=== PATIENT | female | born 1960 | race Caucasian/White ===

== ENCOUNTER 2017-02-03 10:09 | Inpatient (IN) | payer MEDICARE, MEDICAID ==
[~2017-02-03] VITALS: Ht 139.7 cm; Wt 80.0 kg
[2017-02-03 00:22] VITALS: BP 113/71
[~2017-02-03 10:09] MED LIST: AMBIEN10 MG PO; ASPIRIN CHEWABL81 MG PO; ASPIRIN EC81 MG PO; ATORVASTATIN CA40 MG PO; BACTRIM DS1 TAB PO; BENADRYL 50MG C50 MG OR; CITALOPRAM40 MG OR; DOLACET1 CAP PO; DOXYCYCL HYC100 MG PO; FLEXERIL5 MG OR; FLUARIX QUADRIV1 IN1 IM; HUMALOG100 MG/ML SC; HYDROCHLORO25 MG/TAB PO; KEFLEX500 M1 PO; LEVEMIR SC; LEVEMIR1000 UNITS SC; LISINOPRIL20 M1 PO; LOPRESSOR25 MG PO; LORTAB 10-325 M1 TAB PO; LORTAB 5 OR; LOTREL 5/101 CAP OR; LOVASTATIN20 M1 PO; LYRICA200 MG OR; LYRICA200 MG PO; NOVOLO1 SC; OMEPRAZOLE20 MG PO; PERCOCET 5/325M1 TAB PO; PHENAZOPYRID100 MG OR; PHENERGAN25 MG/TAB PO; PLAVIX75 MG OR; PLAVIX75 MG PO; PREDNISONE10 MG PO; PREDNISONE20 MG PO; RANITIDINE150 M1 OR; SANTYL250 MG/GM; SILVADENE1 % EX; TESSALON PER100 MG PO; TRAMADOL HCL50 MG PO; TRAZODONE150 MG OR; ULTRAM50 MG OR; XANAX0.25 MG PO; ZITHROMAX250 MG PO; ZOFRAN ODT4 MG PO; ZOFRAN ODT8 MG OR; [UNRECOGNIZED DRUG - OTHER]; [UNRECOGNIZED DRUG - REMARK]
--- NOTE | 2017-02-03 10:18 | NUR ---
PT TO ROOM FOR TREATMENT IN STABLE CONDITION
[2017-02-03 11:14] LABS: HEMATOCRIT 34.9 % (37.0-47.0); HEMOGLOBIN 11.2 g/dl (12.0-16.0); IMMATURE GRANULOCYTES 1.1 % (0.0-1.0); MEAN CORPUSCULAR HGB CONC 32.1 g/L CALC (32.0-36.0); NEUT# 5.68 thou/uL (2.00-7.15); RED BLOOD COUNT 4.31 mill/uL (4.20-5.60)
--- NOTE | 2017-02-03 11:24 | NUR ---
LAB AT BEDSIDE FOR SECOND BC DRAW.
--- NOTE | 2017-02-03 12:27 | NUR ---
UA OBTAINED VIA STRAIGHT CATH. CLOUDY YELLOW URINE. PT TOELRATED WELL. INFORMED OF DISCOMFORT TO SORES ON BUTTOCKS
[2017-02-03 12:40] LABS: ALBUMIN 3.4 g/dL (3.2-5.0); ALKALINE PHOSPHATASE 244 u/l (38-126); ANION GAP 15 (6-22 (CALC)); BILIRUBIN, TOTAL 0.4 mg/dL (0.0-1.4); BUN 28 mg/dL (7-17); BUN/CREATININE RATIO 30 (12-20 (CALC)); CALCIUM 9.4 mg/dL (8.4-10.2); CARBON DIOXIDE 28 mmol/l (22-30); CHLORIDE 96 mmol/l (95-108); GFR 57 ML/MIN (>=60 (CALC)); GFR FOR AFR.AMER. > 60 ML/MIN (>=60 (CALC)); POTASSIUM 4.9 mmol/l (3.5-5.1); SGOT/AST 15 u/l (14-36); SGPT/ALT 17 u/l (9-52); SODIUM 134 mmol/l (137-146); TOTAL PROTEIN 8.2 g/dL (6.3-8.2)
[2017-02-03 12:43] LABS: GLUCOSE 469 mg/dL (65-105)
[2017-02-03 12:52] LABS: URINE BILIRUBIN - DIPSTICK NEGATIVE (NEGATIVE); URINE BLOOD DIPSTICK SMALL (NEGATIVE); URINE COLOR YELLOW; URINE GLUCOSE - DIPSTICK >=1000 mg/dL (NEGATIVE); URINE KETONE NEGATIVE (NEGATIVE); URINE LEUK ESTERASE NEGATIVE (NEGATIVE); URINE PH 5.5 (4.5-8.0); URINE PROTEIN - DIPSTICK 100 mg/dL (NEG-TRACE); URINE SPECIFIC GRAVITY 1.015; URINE UROBILINOGEN - DIPSTICK 0.2 E.U./dL (0.2)
--- NOTE | 2017-02-03 12:53 | NUR ---
PT STATES SHE DOESNT TAKE ANY MEDS FOR JESSICA , PT STATES "I TAKE MY INSULIN WHEN I THINK I NEED IT ABOUT EVERY THREE TWO DAYS".
[2017-02-03 12:55] LABS: URINE BACTERIA MANY hpf; URINE CLARITY HAZY; URINE EPITHELIAL CELLS MODERATE EPI/hpf (0-FEW); URINE NITRITE - DIPSTICK POSITIVE (Negative)
--- NOTE | 2017-02-03 13:00 | NUR ---
PT CONSUMED 50% OF NOON MEAL. PT DOZING OFF AND ON. ROUSES EASILY. MD NOTIFIED OF BP
--- NOTE | 2017-02-03 14:00 | NUR ---
IV INFUSING ORDERED, TOLERATING WELL. MEDICATED FOR PAIN. MOVES SELF IN BED, OFFLOADING PRESSURE TO BUTTOCKS AT THIS TI,E
--- NOTE | 2017-02-03 15:07 | NUR ---
Vancomycin dose Age: 56 years Weight: 88 kg Height: 139.7 cm Gender: Female SCR: 1 mg/dl Dosing weight: 62.5 kg IBW: 45.5 kg CRCL (ml/min): 45.1 Haris (hr-1): 0.042 Half-life (hrs): 16.50 Vd (liters): 61.60 (factor: 0.7 L/kg) Vancomycin 1500 mg q24 hrs to produce a predicted peak of 36.8 mcg/ml and a predicted trough of 14.61 mcg/ml based on (Population-based pharmacokinetic analysis) Vancomycin trough on 02/07/18 at 0830, 30 minutes prior to dose.
--- NOTE | 2017-02-03 15:30 | NUR ---
[place] [facility] [place]
--- NOTE | 2017-02-03 15:37 | NUR ---
REPORT TO TIARA SUERO
--- NOTE | 2017-02-03 16:00 | NUR ---
TRANSPORTED TO [facility] – [place]IA STRETCHER
--- NOTE | 2017-02-03 16:02 | NUR ---
PT ARRIVED TO FLOOR VIA STRETCHER ACCOMPANIED BY PIO GONZALEZ. PT ORIENTED TO ROOM ADN EQUIPMENT. PLAN OF CARE DISCUSSED. PT TRANSFERED SELF TO BED, BILATERAL AKA. FALL PRECAUTIONS REINFORCED. CALL LIGHT REVIEWED AND IN REACH. PT STATES UNDERSTANDING OF INFORMATION. PT DENIES PAIN AT THIS TIME. ISOLATION PRECAUTIONS IN PLACE R/T HX MRSA.
[2017-02-03 16:09] VITALS: BP 126/70
--- NOTE | 2017-02-03 19:22 | NUR ---
pt awake in bed; offers no complaints at this time; assessment completed at this time; pt alert; denies pain; resp even and unlabored; lungs clear; ra; hr reg; weak radial pulses; tele [id number] intact; abd soft with bs present; no bm noted per inspector automatic typewriter; pt admits to voiding without complication; no urine to inspect at this time; #20 in lac with ivf infusing at 150cc/hr; no redness or edema noted at site; duoderms intact to bilat buttocks; pt admits to being able to reposition self; repositioning strongly encouraged; right bka/ left aka; left stump noted with dressing cdi; no drainage noted at this time; plan of care/ meds explained; call light within reach; contact prec; will continue to monitor
[2017-02-03 19:57] VITALS: BP 95/68
--- NOTE | 2017-02-03 21:25 | NUR ---
pm meds explained and administered; accucheck 241; hs snack provided; medicated for pain; will continue to monitor
--- NOTE | 2017-02-03 21:30 | NUR ---
pt requesting sleeping pill; Dr Duron notified
--- NOTE | 2017-02-03 22:01 | NUR ---
dressing to left stump reinforced; pt denies needs at this time; iv patent; anthony light within reach; will continue to monitor
--- NOTE | 2017-02-04 00:09 | NUR ---
resting with eyes closed; resp even and unlabored; iv intact; call light within reach; will continue to monitor
--- NOTE | 2017-02-04 02:15 | NUR ---
asleep; easily aroused; no distress noted; call light within reach; will continue to monitor
--- NOTE | 2017-02-04 04:20 | NUR ---
awake; complaints of left stump and back pain; will medicate; pt requesting bedpan to urinate; activity encouraged; again repositioning strongly encouraged d/t pressure ulcers; pt assist to bathroom via motorized wc/ pt able to transfer self; tele monitor remains intact; iv patent; no redness or edema noted at site; call light within reach; will continue to monitor
[2017-02-04 04:40] VITALS: BP 183/93
[2017-02-04 07:35] VITALS: BP 142/83
--- NOTE | 2017-02-04 07:35 | NUR ---
PT RESTING IN BED ALERT AND ORIENTED, AM ASSESSMENT COMPLETED SEE INTERVENTIONS, PT HAS DRESSINGS TO BUTTOCKS INTACT WITH EDUCATION PROVIDED FREQUENTLY REGARDING THE IMPORTANCE OF PRESSURE RELIEF TO COCCYX AREA, PT VERBALIZES UNDERSTANDING BUT STATES THAT SHE IS NOT COMFORTABLE SLEEPING OR RESTING ON HER SIDE, WILL CONTINUE TO REINFORCE, CALL RAY WITHIN REACH, DRESSING TO LEFT AKA STUMP INTACT WITH DRESSING IN PLACE NOTED TO HAVE SMALL AMOUNT PURULENT DRAINAGE, WILL COTNINUE TO MONITOR
--- NOTE | 2017-02-04 09:00 | NUR ---
PT TOLERATED AM MEAL WELL, OFFERS NO COMPLAINTS, WILL CONTINUE TO MONITOR
--- NOTE | 2017-02-04 10:20 | NUR ---
IV SITE FOUND DISLODGE EARLIER, 24G PLACED IN R WRIST ON SECOND ATTEMPT BY Uri FERRER LPN, GOOD ASPIRATE NOTED IVF AND BT RESTARTED ORDERED, PT INSTRUCTED TO NOTIFY STAFF IF ANY PROBLEMS WITH SITE AND VERBALIZES UNDERSTANDING
--- NOTE | 2017-02-04 12:30 | NUR ---
PT TOERLATED AFTERNOON MEAL WELL, IVF CONTINUE SITE BENIGN, SAFETY MEASURES REINFORCED, WILL CONTINUE TO MONITOR.
--- NOTE | 2017-02-04 15:30 | NUR ---
PT OOB TO HER PERSONL JEROMY CHAIR (TRANSFERS SELF) INTO BATHROOM AND VOIDS THEN BACK TO JEROMY CHAIR AND BACK TO BED, NYSTATIN POWDER APPLIED TO REDDENED AREAS IN GROIN AND UNDER LEFT BREAST, IV ACCESS OCCLUDED AND SITE REMOVED INTACT, DR.MORA HOLT OF [facility] NOT GIVEN WILL ORDER IM, ALSO AWARE OF NO IV ACCESS (AFTER MULTIPLE ATTEMPTS) AND NO IV FLUIDS, PT TAKING PO WELL WILL ENCOURAGE ADEQUATE INTAKE AND PT VERBALIZES UNDERSTANDING.
[2017-02-04 15:50] VITALS: BP 105/60
--- NOTE | 2017-02-04 17:30 | NUR ---
[facility] GIVEN IM IN LEFT BUTTOCK, PT TOLERATED W/O INCIDENT, AWARE OF NO IV ACCESS AND NO IVF ORDERED, INSULIN GIVEN ORDERED, OFFERS NO NEW COMPLAINTS, WILL CONTINUE TO MONITOR.
[2017-02-04 19:16] VITALS: BP 124/66
--- NOTE | 2017-02-04 19:30 | NUR ---
PATIENT IS RESTING IN BED WITH O2 VIA NASAL CANNULA IN PLACE WITH HOB ELEVATED. PATIENT APPEARS SLEEPING WITH EYES CLOSED. CALL LIGHT IN REACH. WILL CONT TO MONITOR.
[2017-02-04 20:18] VITALS: BP 161/82
--- NOTE | 2017-02-04 20:19 | NUR ---
RECIEVED CALL FROM ER THAT PATIENT IN ABNORMAL RHYTM-RESPONDED TO PATIENT ROOM. PATIENT IS ALERT AND ORIENTEDX3 WITH NO COMPLAINTS AT THIS TIME. ELCTRODES TO THE TELE MONITOR CHECK. VS TAKEN AND RECORDED. NO SOB. NO CHEST PAIN. WILL CONT TO MONITOR.
--- NOTE | 2017-02-04 20:30 | NUR ---
STAT EKG DONE AT BEDSIDE. PATIENT REMAINS ASYMPTOMATIC WITH NO COMPLAINTS. SPOKE TO DR. KENDRICK AT THIS TIME AND ORDER TO D/C TELE RECIEVED AND D/FAVIOLA. CALL LIGHT IN REACH. WILL CONT TO MONITOR.
--- NOTE | 2017-02-04 22:00 | NUR ---
PATIENT MEDICATED FOR C/O PAIN WITH LORTAB ORDERED FOR PAIN. NEW IV SITE STARTED TO LEFT FOREARM-#[id number] WITH GOOD BLOOD RETURN. PATIENT ENCOURAGED TO TURN SIDE TO SIDE TO OFFLOAD BUTTOCKS. PATIENT WITH DUODERMS INTACT AT THIS TIME. EXPLAINED TO THE PATIENT THE IMPORTANCE, THAT THE ANTIBIOTICS WILL NOT HEAL THESE ULCERS SHE HAD STATED. THAT ONLY TURNING FROM SIDE TO SIDE WILL RELIEVE THE PRESSURE THAT CAUSED THESE ULCERS. ALSO ENCOURAGED PROPER NUTRITION TO AID IN HEALING. SAFETY PRECAUTIONS REINFORCED. CONTACT PRECAUTIONS MAINTAINED. LINENS CHANGED AND PATIENT DID TURN TO SIDE. CALL LIGHT IN REACH. WILL CONT MONITOR.
[2017-02-05 00:01] VITALS: BP 128/83
--- NOTE | 2017-02-05 02:19 | NUR ---
PATIENT TURNED AND REPOSITIONED. O2 VIA NASAL CANNULA. CALL LIGHT IN REACH. WILL CONT TO MONITOR.
[2017-02-05 04:00] VITALS: BP 133/71
[2017-02-05 04:15] VITALS: BP 152/76
--- NOTE | 2017-02-05 04:22 | NUR ---
PATIENT ASSISTED TO MOTORIZED SCOOTER TO BR TO TOILET TO VOID. ASSISTED BACK TO THE BED AND THEN POSITIONED ON HER RIGHT SIDE. CONT TO REINFORCED THE NEED TO TURN AT LEAST Q2H TO PREVENT ANY FURTHER SKIN BREAKDOWN. CALL LIGHT IN REACH. WILL CONT TO MONITOR.
--- NOTE | 2017-02-05 04:37 | NUR ---
PATIENT C/O NAUSEA AT THIS TIME-REFUSING TO TAKE ZOFRAN AT THIS TIME. BS CHECK AND WAS 186. PATIENT TURNED ON SIDE. BLOOD BEING DRAWN AT THIS TIME. CALL LIGHT IN REACH. WILL CONT TO MONITOR.
[2017-02-05 05:16] LABS: HEMATOCRIT 35.1 % (37.0-47.0); HEMOGLOBIN 10.8 g/dl (12.0-16.0); MEAN CORPUSCULAR HGB 26.2 pG CALC (26.0-32.0); MEAN CORPUSCULAR HGB CONC 30.8 g/L CALC (32.0-36.0); RED BLOOD COUNT 4.13 mill/uL (4.20-5.60); RED CELL DISTRI WIDTH 18.5 % (11.5-15.5)
[2017-02-05 05:39] LABS: ANION GAP 14 (6-22 (CALC)); BUN 38 mg/dL (7-17); BUN/CREATININE RATIO 39 (12-20 (CALC)); CALCIUM 9.1 mg/dL (8.4-10.2); CARBON DIOXIDE 27 mmol/l (22-30); CHLORIDE 102 mmol/l (95-108); GFR 57 ML/MIN (>=60 (CALC)); GFR FOR AFR.AMER. > 60 ML/MIN (>=60 (CALC)); GLUCOSE 185 mg/dL (65-105); MAGNESIUM 1.9 mg/dL (1.6-2.3); POTASSIUM 5.1 mmol/l (3.5-5.1); SODIUM 138 mmol/l (137-146)
--- NOTE | 2017-02-05 07:00 | NUR ---
RECEIVED BEDSIDE REPORT FROM ALANIS SUERO. PT RESTING IN SEMI FOWLERS WITH EYES CLOSED, AWAKENS EASILY. RESPS EVEN AND UNLABORED ON ROOM AIR, TELE MONITOR IN PLACE. VOICES NO C/O AT THIS TIME. PLAN OF CARE DISCUSSED. SAFETY PRECAUTIONS REINFORCED. BED IN LOWEST POSITION WITH WHEELS LOCKED. CALL LIGHT WITHIN REACH. WILL CONTINUE TO MONITOR.
[2017-02-05 07:45] VITALS: BP 125/72
--- NOTE | 2017-02-05 08:21 | NUR ---
ED CULTURE PHARMACY MEDICATION FOLLOW-UP Patient was seen in ED on 02/03/17 Cultures were reviewed from: Wound Patient was discharged with Rx for:INPATIENT ON VANCOMYCIN C&S report came back with Growth and Sensitive to medication PLAN: Recommended: No Change Comment:
--- NOTE | 2017-02-05 08:21 | NUR ---
ED CULTURE PHARMACY MEDICATION FOLLOW-UP Patient was seen in ED on 02/03/17 Cultures were reviewed from: Urine Patient was discharged with Rx for:INPATIENT ON ROCE[facility] C&S report came back with Growth and Sensitive to medication PLAN: Recommended: No Change Comment:
--- NOTE | 2017-02-05 09:40 | NUR ---
RESTING IN BED IN HIGH FOWLERS. C/O 04/01 LEFT STUMP PAIN, MEDICATED WITH LORTAB PO FOR RELIEF. CALL LIGHT WITHIN REACH.
--- NOTE | 2017-02-05 10:10 | NUR ---
DR KENDRICK IN TO SEE PT, NEW ORDERS RECEIVED.
--- NOTE | 2017-02-05 12:00 | NUR ---
ABD PAD TO LEFT STUMP SECURED WITH STOCKINETTE. SMALL AMT BROWN DRAIANGE NOTED. PT TOLERATED WELL.
[2017-02-05 15:47] VITALS: BP 136/77
--- NOTE | 2017-02-05 16:00 | NUR ---
IN HIGH FOWLERS WATCHING TV. #20 LAC PATENT, SITE APPEARS HEALTHY. DENIES PAIN OR DISCOMFORT. CALL LIGHT WITHIN REACH. ENCOURAGED PT TO CALL FOR ANY NEEDS.
--- NOTE | 2017-02-05 19:30 | NUR ---
PATIENT RESTING IN BED AT THIS TIME WATCHING TV AT THIS TIME. PATIENT IS AWAKE ALERT AND ORIENTEDX3. PATIENT WITH NO COMPLAINTS AT THIS TIME. PATIENT WITH HEP LOCK TO LEFT AC-SITE APPEARS HEALTHY AT THIS TIME. ENCOURAGE PATIENT TO CONT TO TURN AND REPOSITION AT LEAST Q2H FOR PRESSURE RELEIF TO BUTTOCK DECUBS. DUODERMS REMAIN IN PLACE AT THIS TIME. SAFETY PRECAUTIONS REINFORCED. CONTACT FOR MRSA MAINTAINED. CALL LIGHT IN REACH. WILL CONT TO MONITOR.
[2017-02-05 20:10] VITALS: BP 157/84
--- NOTE | 2017-02-05 21:35 | NUR ---
PATIENT RESTING IN BED AT THIS TIME. PATIENT MEDICATED FOR PAIN WITH LORTAB ORDERED FOR PAIN. PATIENT ALSO MEDICATED FOR SLEEP WITH SONATA PER PATIENT REQUEST. NYSTATIN POWDER APPLIED UNDER PATIENT BREASTS-APPEARS TO BE RESOLVING. AGAIN REINFORCED THE NEED TO TURN OFF BUTTOCKS AT LEAST Q2H. HS SNACK GIVEN. CALL LIGHT IN REACH. WILL CONT TO MONITOR.
--- NOTE | 2017-02-06 00:30 | NUR ---
PATIENT APPEARS SLEEPING AT THIS TIME. CALL LIGHT IN REACH. WILL CONT TO MONITOR.
[2017-02-06 04:35] VITALS: BP 149/80
--- NOTE | 2017-02-06 04:47 | NUR ---
PATIENT WNCOURAGE TO CONT TO TURN SIDE TO SIDE AT LEAST Q2H WHILE AWAKE. CALL LIGHT IN REACH. WILL CONT TO MONITOR.
[2017-02-06 05:24] LABS: HEMATOCRIT 34.7 % (37.0-47.0); HEMOGLOBIN 10.7 g/dl (12.0-16.0); MEAN CELL VOLUME 84.8 fL CALC (80.0-100.0); MEAN CORPUSCULAR HGB 26.2 pG CALC (26.0-32.0); MEAN CORPUSCULAR HGB CONC 30.8 g/L CALC (32.0-36.0); RED BLOOD COUNT 4.09 mill/uL (4.20-5.60); RED CELL DISTRI WIDTH 18.8 % (11.5-15.5)
[2017-02-06 05:56] LABS: ANION GAP 12 (6-22 (CALC)); BUN 29 mg/dL (7-17); BUN/CREATININE RATIO 35 (12-20 (CALC)); CALCIUM 9.1 mg/dL (8.4-10.2); CARBON DIOXIDE 27 mmol/l (22-30); CHLORIDE 106 mmol/l (95-108); CREATININE 0.8 mg/dL (0.5-1.0); GFR > 60 ML/MIN (>=60 (CALC)); GFR FOR AFR.AMER. > 60 ML/MIN (>=60 (CALC)); GLUCOSE 82 mg/dL (65-105); POTASSIUM 5.1 mmol/l (3.5-5.1); SODIUM 139 mmol/l (137-146)
--- NOTE | 2017-02-06 07:00 | NUR ---
RECEIVED BEDSIDE REPORT FROM ALANIS SUERO. IN HIGH FOWLERS, RESPS EVEN AND UNLABORED ON ROOM AIR. DENIES PAIN OR DISCOMFORT. PLAN OF CARE DISCUSSED. SAFETY PRECAUTIONS REINFORCED. BED IN LOWEST POSITION WITH WHEELS LOCKED. CALL LIGHT WITHIN REACH. WILL CONTINUE TO MONITOR.
--- NOTE | 2017-02-06 09:27 | NUR ---
TO RADIOLOGY IN STABLE CONDITION VIA STRETCHER ACCOMPANIED BY BRE QUINTERO.
--- NOTE | 2017-02-06 10:48 | NUR ---
FROM RADIOLOGY VIA STRETCHER ACCOMPANIED BY BRE QUINTERO.
[2017-02-06 11:09] VITALS: BP 138/77
--- NOTE | 2017-02-06 12:00 | NUR ---
SITTING IN HIGH FOWLERS. RESPS EVEN AND UNLABORED ON ROOM AIR. #20 LAC INFUSING WITHOUT DIFFICULTY, SITE APPEARS HEALTHY. ABD PAD SECURED WITH STOCKINETTE TO LEFT STUMP, SMALL AMT BROWN DRAINAGE NOTED. PT TOLERATED WELL. RAJIHA IN TO SEE PT, AWAITING NEW ORDERS. CALL LIGHT WITHIN REACH. ENCOURAGED PT TO CALL FOR ANY NEEDS.
[2017-02-06 15:23] VITALS: BP 166/84
--- NOTE | 2017-02-06 16:00 | NUR ---
SITTING IN WHEELCHAIR AT BEDSIDE. RESPS EVEN AND UNLABORED ON ROOM AIR. REFUSES TO LEAVE DRESSING TO LEFT STUMP IN PLACE. CALL LIGHT WITHIN REACH. ENCOURAGED PT TO CALL FOR ANY NEEDS.
--- NOTE | 2017-02-06 20:00 | NUR ---
PATIENT SITTING UP IN THE PATIENT SCOOTER AT THIS TIME. PATIENT WITH NO COMPLAINTS AT THIS TIME. CALL LIGHT IN [facility]. WILL CONT TO MONITOR.
[2017-02-06 20:18] VITALS: BP 146/83
--- NOTE | 2017-02-06 21:31 | NUR ---
PATIENT COMING OUT OF THE BR AFTER VOIDING-PM MEDS GIVEN ORDERED. PATIENT C/O PAIN TO LEFT STUMP AND BUTTOCKS AT 9/10 ON PAIN SCALE. PATIENT MEDICATED WITH LORTAB 10/325MG PO ORDERED. PATIENT MEDICATED FOR SLEEP WITH SONATA 5MG PO. CONT TO ENCOURAGE PATIENT TO TURN SIDE TO SIDE TO KEEP PRESSURE OFF BUTTOCKS. DUODERM INTACT TO BUTTOCKS AT THIS TIME. PATIENT IS EATING HS SNACK. INSULIN GIVEN ORDERED. CALL LIGHT IN REACH. WILL CONT TO MONITOR. CONTACT PRECAUTIONS MAINTAINED.
--- NOTE | 2017-02-06 23:49 | NUR ---
PATIENT APPEARS SLEEPING AT THIS TIME ON RIGHT SIDE WITH BED IN HIGH FOWLERS POSITION. BREATHING IS IMPROVED AND LESS LABORED WITH RESP RATE OF 20 AT THIS TIME. O2 VIA NASAL CANNULA IN PLACE. WILL CONT TO MONITOR.
--- NOTE | 2017-02-07 01:47 | NUR ---
PATIENT APPEARS SLEEPING AT THIS TIME. CALL LIGHT IN REACH. WILL CONT TO MONITOR.
--- NOTE | 2017-02-07 04:08 | NUR ---
PATIENT AWAKE AND SITTING UP IN HER MOTORIZED CHAIR. PATIENT CONT TO HAVE NAUSEA WHEN SHE CHANGES HER POSITION. REFUSING ANY ZOFRAN AT THIS TIME. STATES THAT IT WILL GO AWAY. WATCHING TV AT THIS TIME. CONT TO REINFORCE WITH PATIENT THE NEED TO OFFLOAD PRESSURE WHEN IN CHAIR TOO-TO PREVENT ANY FURTHER PRESSURE ULCER TO BUITTOCKS. PATIENT NEEDS CONSTANT REINFORCEMENT REGUARDING THE CHANGING OF POSITION. CALL LIGHT IN REACH. WILL CONT TO MONITOR.
[2017-02-07 04:10] VITALS: BP 140/80
[2017-02-07 05:32] LABS: HEMATOCRIT 34.1 % (37.0-47.0); HEMOGLOBIN 10.5 g/dl (12.0-16.0); MEAN CELL VOLUME 84.8 fL CALC (80.0-100.0); MEAN CORPUSCULAR HGB 26.1 pG CALC (26.0-32.0); MEAN CORPUSCULAR HGB CONC 30.8 g/L CALC (32.0-36.0); NEUT# 5.47 thou/uL (2.00-7.15); RED BLOOD COUNT 4.02 mill/uL (4.20-5.60); RED CELL DISTRI WIDTH 18.8 % (11.5-15.5)
[2017-02-07 05:46] LABS: ANION GAP 13 (6-22 (CALC)); BUN 21 mg/dL (7-17); BUN/CREATININE RATIO 28 (12-20 (CALC)); CALCIUM 9.3 mg/dL (8.4-10.2); CARBON DIOXIDE 28 mmol/l (22-30); CHLORIDE 106 mmol/l (95-108); CREATININE 0.7 mg/dL (0.5-1.0); GFR > 60 ML/MIN (>=60 (CALC)); GFR FOR AFR.AMER. > 60 ML/MIN (>=60 (CALC)); GLUCOSE 109 mg/dL (65-105); POTASSIUM 4.7 mmol/l (3.5-5.1); SODIUM 142 mmol/l (137-146)
--- NOTE | 2017-02-07 07:00 | NUR ---
RECEIVED BEDSIDE REPORT FROM ALANIS SUERO. PT SITTING IN WHEELCHAIR AT BEDSIDE. RESPS EVEN AND UNLABORED ON ROOM AIR. DENIES ANY NEEDS AT THIS TIME. PLAN OF CARE DISCUSSED. SAFETY PRECAUTIONS REINFORCED. BED IN LOWEST POSITION WITH WHEELS LOCKED. CALL LIGHT WITHIN REACH. ENCOURAGED PT TO CALL FOR ANY NEEDS.
--- NOTE | 2017-02-07 09:49 | NUR ---
S: MAGGI ZEPEDA is a 56 F who presents with left AKA stump infection due to MRSA. O: Vancomycin trough level: 16 VS: BP: 155/91 mmHg P: 80 bpm RR: 18 bpm T: 96.9 F W: 88 kg HT:139.7 cm Scr= 0.7 mg/dL CrCl= 64.4 ml/min A: Blood culture pending. Urine culture shows E coli which is sensitive to Ceftriaxone. Wound culture shows MRSA which is sensitive to Vancomycin Pt is at therapeutic level of Vancomycin. P: Continue Vancomycin 1500mg IV Q24H. Vancomycin trough is drawn before the 8th dose on 02/11/17 at 0830. Vancomycin goal trough is between 15-20 mcg/ml. Pharmacy will follow and or advise on antibiotics use as needed.
[2017-02-07 09:52] VITALS: BP 155/91
--- NOTE | 2017-02-07 10:00 | NUR ---
DR WRIGHT IN TO SEE PT, NEW ORDERS RECEIVED.
[2017-02-07 11:01] VITALS: BP 161/83
--- NOTE | 2017-02-07 11:15 | NUR ---
TO RADIOLOGY IN STABLE CONDITION VIA STRETCHER ACCOMPANIED BY GALE QUINTERO.
[2017-02-07] MEDS ORDERED: ATORVASTATIN CA40 MG PO (12:12)
[2017-02-07] MEDS ORDERED: LISINOPRIL20 M1 PO (12:12)
[2017-02-07] MEDS ORDERED: LEVEMIR100 UNIT/M SC (12:12)
[2017-02-07] MEDS ORDERED: ADLT ASA LOW81 MG PO (12:12)
[2017-02-07] MEDS ORDERED: LORTAB 10-325 M1 TAB PO (12:12)
[2017-02-07] MEDS ORDERED: FLORASTOR250 M1 PO (12:12)
[2017-02-07] MEDS ORDERED: TRAMADOL HCL50 MG PO (12:12)
[2017-02-07] MEDS ORDERED: NOVOLOG100 UNIT/M SC (12:12)
[2017-02-07] MEDS ORDERED: AMLODIPINE BESYL5 MG PO (12:12)
[2017-02-07] MEDS ORDERED: KEFLEX500 M1 PO (12:13)
--- NOTE | 2017-02-07 12:15 | NUR ---
FROM RADIOLOGY VIA STRETCHER ACCOMPANIED BY RADIOLOGY STUDENT. PT TRANSFERRED TO BED WITH STAND BY ASSIST.
[2017-02-07] MEDS ORDERED: NYSTOP100000 UNI TOP (12:21)
--- NOTE | 2017-02-07 16:10 | NUR ---
Discharge instructions given. Patient verbalizes understanding of same. Discharged in stable condition via Medical Transport to [facility] with *Other. All belongings sent with pt. TO [facility] VIA MEDICAL TRANSPORT
--- NOTE | 2017-02-07 16:39 | NUR ---
NURSE TO NURSE REPORT CALLED TO RUTHANN RAMEY AT [facility].
--- NOTE | 2017-02-09 09:56 | NUR ---
ED CULTURE PHARMACY MEDICATION FOLLOW-UP Patient was seen in ED on 02/03/17 Cultures were reviewed from: Blood Patient was discharged with Rx for:KEFLEX C&S report came back with No Growth PLAN: Recommended: No Change Comment: INFECTION OF AMPUTATION STUMP, CYSTITIS
== END 2017-02-07 16:10 | DRG 565 ==
LOC: ENPENDDIS → ED 10:09 → ED-I 13:41 → ED 14:21 → MS2 14:22
PROVIDERS: Emergency Medicine; Internal Medicine; ADMIT Internal Medicine; ATTEND Internal Medicine
PROC: 02HV33Z Insertion of Infusion Device into Superior Vena Cava, Percutaneous Approach (ICD-10-PCS; principal; 2017-02-07)
PROC: B518ZZA Fluoroscopy of Superior Vena Cava, Guidance (ICD-10-PCS; 2017-02-07)
DX: T87.44 Infection of amputation stump, left lower extremity (principal); N30.00 Acute cystitis without hematuria; L89.312 Pressure ulcer of right buttock, stage 2; L89.152 Pressure ulcer of sacral region, stage 2; E11.21 Type 2 diabetes mellitus with diabetic nephropathy; L89.322 Pressure ulcer of left buttock, stage 2; M86.9 Osteomyelitis, unspecified; I16.0 Hypertensive urgency; E11.51 Type 2 diabetes mellitus with diabetic peripheral angiopathy without gangrene; E11.65 Type 2 diabetes mellitus with hyperglycemia; E11.69 Type 2 diabetes mellitus with other specified complication; I10 Essential (primary) hypertension; M19.90 Unspecified osteoarthritis, unspecified site; E78.5 Hyperlipidemia, unspecified; B37.2 Candidiasis of skin and nail; B95.62 Methicillin resistant Staphylococcus aureus infection as the cause of diseases classified elsewhere; B96.20 Unspecified Escherichia coli [E. coli] as the cause of diseases classified elsewhere; Y83.5 Amputation of limb(s) as the cause of abnormal reaction of the patient, or of later complication, without mention of misadventure at the time of the procedure; Z89.511 Acquired absence of right leg below knee; Z89.612 Acquired absence of left leg above knee; Z95.820 Peripheral vascular angioplasty status with implants and grafts; Z91.14 Patient's other noncompliance with medication regimen; Z86.14 Personal history of Methicillin resistant Staphylococcus aureus infection; Z79.4 Long term (current) use of insulin
CPT/HCPCS: A9579; J0692; J1650; J3370